=== PATIENT | female | born 1960 | race African-American/Black ===

== ENCOUNTER 2020-04-04 09:55 | Inpatient (IN) | payer MEDICAID ==
[~2020-04-04] VITALS: Ht 162.6 cm; Wt 95.3 kg
[2020-04-04] MEDS ORDERED: SODIUM CHLORIDE 0.9% 1,000 ML IV ONE (10:31)
[2020-04-04 10:56] LABS: BASOPHILS % 0.5 % (0.0-2.0); HEMATOCRIT. 39.3 % (36.0-48.0); HEMOGLOBIN. 13.1 g/dL (12.0-16.0); LYMPHOCYTES % 14.1 % (20.0-50.0); MEAN CORPUSCULAR HEMOGLOBIN 31.7 pg (28.0-32.0); MEAN CORPUSCULAR VOLUME 95.4 fL (81.0-99.0); MEAN PLATELET VOLUME 9.1 fl (7.4-10.4); MONOCYTES % 6.2 % (2.0-8.0); NEUTROPHILS % 78.2 % (40.0-76.0); PLATELET 339 x1000/uL (130-400); RED BLOOD CELL COUNT 4.12 mill/uL (4.2-5.4); RED CELL DISTRIBUTION WIDTH 15.2 % (11.6-14.6)
[2020-04-04 11:04] LABS: CHLORIDE 104 mEq/L (98-107)
[2020-04-04 11:07] LABS: ETHANOL BLOOD < 10 mg/dL
[2020-04-04 11:12] LABS: INR 1.1; PROTHROMBIN TIME 11.4 sec (9.6-11.0)
[2020-04-04] MEDS ORDERED: POTASSIUM CHLORIDE 20MEQ TABLET SR PO ONE (12:00)
[2020-04-04] MEDS: ENOXAPARIN 40MG/0.4ML SYR SUBCUT SCH (14:00)
[2020-04-04] MEDS ORDERED: ACETAMINOPHEN 325MG TABLET PO PRN (14:00)
[2020-04-04] MEDS ORDERED: MORPHINE SULFATE 2 MG/ML CPJ (NOT FOR IM USE) IV PRN (14:00)
[2020-04-04] MEDS ORDERED: CLONIDINE 0.1MG TABLET PO PRN (14:00)
[2020-04-04] MEDS: CEFTRIAXONE 1 G PREMIX 50 ML IV SCH (14:00)
[2020-04-04] MEDS ORDERED: DIPHENHYDRAMINE 50MG/ML VIAL IV PRN (14:00)
[2020-04-04] MEDS ORDERED: IPRATROPIUM/ALBUTEROL 0.5-3(2.5)MG/3ML NEB HHN PRN (14:00)
[2020-04-04] MEDS ORDERED: ONDANSETRON HCL 4MG/2ML INJ IV PRN (14:00)
[2020-04-04 14:24] LABS: PHOSPHORUS 3.1 mg/dL (2.5-4.9)
[2020-04-04 20:27] VITALS: BP 146/53
[2020-04-04 21:00] VITALS: BP 146/93
[2020-04-05] VITALS: BP 148/100
[2020-04-05 04:00] VITALS: BP 138/90
[2020-04-05 06:35] LABS: BASOPHILS % 0.3 % (0.0-2.0); EOSINOPHILS % 0.8 % (0.0-5.0); HEMATOCRIT. 36.4 % (36.0-48.0); HEMOGLOBIN. 12.1 g/dL (12.0-16.0); LYMPHOCYTES % 12.4 % (20.0-50.0); MEAN CORPUSCULAR HEMOGLOBIN 31.7 pg (28.0-32.0); MEAN CORPUSCULAR VOLUME 95.1 fL (81.0-99.0); MEAN PLATELET VOLUME 9.4 fl (7.4-10.4); MONOCYTES % 5.3 % (2.0-8.0); NEUTROPHILS % 81.2 % (40.0-76.0); PLATELET 306 x1000/uL (130-400); RED BLOOD CELL COUNT 3.83 mill/uL (4.2-5.4); RED CELL DISTRIBUTION WIDTH 15.2 % (11.6-14.6)
[2020-04-05 06:51] LABS: CHLORIDE 108 mEq/L (98-107)
[2020-04-05 07:04] LABS: HDL CHOLESTEROL 26 mg/dL (40-59); LDL CHOLESTEROL 128 mg/dL (5-100)
[2020-04-05 08:00] VITALS: BP 146/93
[2020-04-05 12:00] VITALS: BP 157/94
[2020-04-05] MEDS: ENOXAPARIN 40MG/0.4ML SYR SUBCUT SCH (15:02)
[2020-04-05 16:00] VITALS: BP 144/106
[2020-04-05 16:13] LABS: CLARITY URINE CLOUDY (CLEAR); COLOR URINE DARK YELLOW (YELLOW); KETONES URINE TRACE (NEGATIVE); LEUKOCYTE ESTERASE URINE TRACE (NEGATIVE); NITRITE URINE NEGATIVE (NEGATIVE); OCCULT BLOOD URINE NEGATIVE (NEGATIVE); PH URINE 5.5 (4.5-8.0); PROTEIN URINE TRACE (NEGATIVE); SPECIFIC GRAVITY URINE 1.032 (1.005-1.030)
[2020-04-05] MEDS: CEFTRIAXONE 1 G PREMIX 50 ML IV SCH (16:26)
[2020-04-05 17:34] LABS: *AMPHETAMINES SCREEN URINE NEGATIVE (NEGATIVE); *BARBITURATES SCREEN URINE NEGATIVE (NEGATIVE); *BENZODIAZEPINES SCREEN URINE NEGATIVE (NEGATIVE)
[2020-04-05 17:36] LABS: *COCAINE SCREEN URINE NEGATIVE (NEGATIVE); CANNABINOID URINE SCREEN NEGATIVE (NEGATIVE); METHADONE URINE SCREEN NEGATIVE (NEGATIVE); OPIATES URINE SCREEN PRESUMTIVE POSITIVE (NEGATIVE); PHENCYCLIDINE URINE SCREEN NEGATIVE (NEGATIVE)
[2020-04-05] MEDS ORDERED: LORAZEPAM 1MG TABLET PO PRN (18:00)
[2020-04-05 20:00] VITALS: BP 155/80
[2020-04-05] MEDS ORDERED: DEXTROSE 50% WATER 50ML SYRINGE IV PRN (20:30)
[2020-04-05] MEDS: INSULIN LISPRO 100 UNITS/ML SUBCUT SCH (21:00)
[2020-04-05] MEDS: BLOOD SUGAR DIAGNOSTIC STRIP TEST SCH (21:20)
[2020-04-05] MEDS: CHLORDIAZEPOXIDE 25MG CAPSULE PO SCH (21:20)
[2020-04-06] VITALS: BP 147/90
[2020-04-06 04:00] VITALS: BP 139/93
[2020-04-06] MEDS: CHLORDIAZEPOXIDE 25MG CAPSULE PO SCH ×2 (05:46→16:05)
[2020-04-06] MEDS: BLOOD SUGAR DIAGNOSTIC STRIP TEST SCH ×3 (05:51→17:42)
[2020-04-06] MEDS: INSULIN LISPRO 100 UNITS/ML SUBCUT SCH ×3 (05:52→17:15)
[2020-04-06 08:07] VITALS: BP 139/78
[2020-04-06 12:00] VITALS: BP 133/85
[2020-04-06] MEDS ORDERED: POTASSIUM CHLORIDE 20MEQ TABLET SR PO SCH (12:00)
[2020-04-06] MEDS: CEFTRIAXONE 1 G PREMIX 50 ML IV SCH (14:00)
[2020-04-06 16:00] VITALS: BP 155/96
[2020-04-06] MEDS: ENOXAPARIN 40MG/0.4ML SYR SUBCUT SCH (16:06)
== END 2020-04-06 19:15 | disposition short-term general hospital (02) | DRG 425 ==
LOC: ER 10:05 → EDBEDREQ 13:26 → ENRESERV 18:09 → 5WST 20:33
PROVIDERS: ADMIT Internal Medicine; ATTEND Internal Medicine
DX: E87.6 Hypokalemia (principal); G93.40 Encephalopathy, unspecified; E46 Unspecified protein-calorie malnutrition; E11.9 Type 2 diabetes mellitus without complications; Z72.89 Other problems related to lifestyle; F10.10 Alcohol abuse, uncomplicated; I10 Essential (primary) hypertension
CPT/HCPCS: 36415; 70551; 71045; 80053; 80061; 80305; 80320; 81003; 82140; 82962; 83036; 83735; 84100; 84443; 84484; 85025; 93005; 93970; 97162; 99285; J0696; J1650; J2270; J7030; G0480